=== PATIENT | female | born 1995 | race Caucasian/White ===

== ENCOUNTER 2018-09-26 09:44 | Day surgery (SDC) | payer OTHER ==
[~2018-09-26] VITALS: Ht 157.5 cm; Wt 82.1 kg
[~2018-09-26 09:44] MED LIST: ACETAMINOPHEN 650 MG SUPP PR ONE; LR 1,000 ML IV ONE
[2018-09-26 10:21] LABS: HEMATOCRIT 40.8 % (36.0-47.0); HEMOGLOBIN 13.5 g/dl (12.0-15.5); MEAN CORPUSCULAR HEMOGLOBIN 28.8 pg (27.0-33.0); MEAN CORPUSCULAR HGB CONC 33.1 g/dl (32.0-36.5); PLATELET COUNT, AUTOMATED 298 10^3/uL (150-450); RED BLOOD COUNT 4.69 10^6/uL (4.00-5.40); WHITE BLOOD COUNT 6.5 10^3/uL (4.0-10.0)
[2018-09-26 10:41] LABS: BLOOD UREA NITROGEN 13 MG/DL (7-18); CARBON DIOXIDE LEVEL 28 MEQ/L (21-32); CHLORIDE LEVEL 107 MEQ/L (98-107); CREATININE FOR GFR 0.73 MG/DL (0.55-1.30); GLOMERULAR FILTRATION RATE > 60.0 (>60); GLUCOSE, FASTING 92 MG/DL (70-100); HCG, SERUM QUANTITATIVE < 1.0 MIU/ML; POTASSIUM SERUM 5.2 MEQ/L (3.5-5.1); SODIUM LEVEL 140 MEQ/L (136-145)
[2018-09-26] MEDS ORDERED: LIDOCAINE 2% INJ 100 MG/5 ML SDV (FOR ANES.) As Ordered ONE (10:50)
[2018-09-26] MEDS ORDERED: PROPOFOL 200 MG/20 ML VIAL As Ordered ONE (10:50)
[2018-09-26] MEDS ORDERED: ROCURONIUM BROMIDE 50 MG/5 ML VIAL As Ordered ONE (10:50)
[2018-09-26] MEDS ORDERED: dexameTHASONE 4 MG/ML 1ML VIAL (J1100) As Ordered ONE (10:52)
[2018-09-26] MEDS ORDERED: HYDROmorphone HCL 2 MG/ML 1ML VIAL (J1170) As Ordered ONE (10:52)
[2018-09-26] MEDS ORDERED: MIDAZOLAM INJ 2 MG/2 ML VIAL (J2250) As Ordered ONE (10:52)
[2018-09-26] MEDS ORDERED: fentaNYL 100 MCG/2 ML INJECTION (J3010) As Ordered ONE (10:52)
[2018-09-26] MEDS ORDERED: METOCLOPRAMIDE INJ 10MG/2ML VIAL (J2765) As Ordered ONE (10:53)
[2018-09-26] MEDS ORDERED: KETOROLAC 60 MG/2 ML VIAL (J1885) As Ordered ONE (11:45)
[2018-09-26] MEDS ORDERED: METHYLENE BLUE 0.5% (5MG/ML) 10 ML AMP (PROVAYBLUE)(Q9968 PER 1MG) As Ordered ONE (12:31)
[2018-09-26] MEDS ORDERED: ACETAMINOPHEN 650 MG SUPP As Ordered ONE (12:32)
[2018-09-26] MEDS: BUPIVACAINE HCL 0.25% 10 ML VIAL As Ordered ONE ×2 (13:45→13:47)
[2018-09-26] MEDS ORDERED: fentaNYL 100 MCG/2 ML INJECTION (J3010) IV PRN (14:15)
[2018-09-26] MEDS ORDERED: LR 1,000 ML IV SCH (14:15)
[2018-09-26] MEDS ORDERED: HYDROMORPHONE HCL 0.5 MG/ 0.5 ML SYRINGE (J1170 PER 1) IV PRN (14:15)
[2018-09-26] MEDS: PERCOCET 5MG/325MG TAB PO PRN ×2 (14:20→15:01)
[2018-09-26 15:19] VITALS: BP 115/75
[2018-09-26] MEDS ORDERED: KETOROLAC 30 MG/ML VIAL (J1885) IV PRN (20:00)
--- NOTE | 2018-10-04 17:47 | RO ---
DATE OF PROCEDURE: 09/26/2018 PREOPERATIVE DIAGNOSIS: Satisfied parity POSTOPERATIVE DIAGNOSIS: Satisfied parity and adhesions. OPERATION PROPOSED: Laparoscopic operative bilateral salpingectomy, hysteroscopy, dilation and curettage, removal of intrauterine contraceptive device (IUCD). OPERATION PERFORMED: Operative laparoscopy, bilateral salpingectomy, release of adhesions, and removal of intrauterine contraceptive device. No hysteroscopy was performed. SURGEON: Dr. Christopher Mcdermott BILLING AUDITOR: Dr. Anna Mas ANESTHESIA: DESCRIPTION OF PROCEDURE: Under adequate anesthesia, prepped and draped in the lithotomy position, Burris catheter in the bladder draining clear urine. Acetaminophen suppository 1300 mg per rectum. Sequentials on board. Weighted speculum in vagina, single-tooth tenaculum on anterior lip of the cervix. A uterine elevator was placed in endocervical canal. Reprepping and draping, small subumbilical incision was made. Veress needle was applied, 3.4 liters of CO2 at a flow rate of 14 to a pressure of 15. Under direct vision, a 5 mm scope was placed in the abdomen. No evidence of perforation, hemorrhage or bleeding. Evaluation: Presently the patient is menstruating. There is a lot of blood in the cul-de-sac. Right upper quadrant was normal. Left upper quadrant was normal. Cul-de-sac is full of menstrual blood. Anterior aspect of the bladder was full of menstrual blood. Both ovaries appeared to be normal. Tubes were visualized to the fimbriated end. She had some adhesions of the right adnexa to the sidewall of the pelvis. With a 5 mm port on either side, we took down the adhesive bands allowing the ovary to float free. No evidence of endometriosis was seen. We then went ahead and using the LigaSure, we removed the right tube right to the cornua, and we removed the left tube right to the cornua. No evidence of active bleeding. Both tubes were removed out of the ports on the inferior ports and sent off to pathology under cover. Once that was done, we demonstrated no evidence of active bleeding. We irrigated out the old blood. We then deflated to 4 mm pressure. We then removed the two side ports, the mainstem port, put a deep stitch in the umbilical area, superficial stitches, Marcaine 0.25% to the skin and skin tapes. Going below, our attention placed, with the weighted speculum in the vagina, we removed the uterine elevator. We were able to visualize the string; therefore, we just pulled the IUCD out, which was sent to pathology under separate cover. With that done, all the instruments removed, the Burris catheter was removed, the uterus was placed in anatomical position, and the patient was sent to recovery in good condition.
== END 2018-09-26 15:47 | disposition home or self-care (01) ==
LOC: M SDC 09:44
PROVIDERS: ATTEND Obstetrics & Gynecology
DX: Z30.2 Encounter for sterilization (principal); N73.9 Female pelvic inflammatory disease, unspecified
CPT/HCPCS: 36415; 58301; 58661; 80048; 84702; 85027; 88300; 88302; J1100; J1170; J1885; J2250; J2765; J3010

== ENCOUNTER → 2019-03-27 | Outpatient (RCR) | payer OTHER | END | disposition home or self-care (01) | LOC: M PT 09:06 | PROVIDERS: ATTEND Otolaryngology | DX: M26.609 Unspecified temporomandibular joint disorder, unspecified side (principal) ==

== ENCOUNTER 2019-04-26 09:02 | Outpatient (RCR) | payer OTHER | END 2019-04-27 | LOC: M PT 09:02 | PROVIDERS: ATTEND Otolaryngology | DX: M26.609 Unspecified temporomandibular joint disorder, unspecified side (principal) ==

== ENCOUNTER → 2019-05-13 | Outpatient (REF) | payer OTHER ==
[2019-05-13 13:44] LABS: BASO % 0.3 % (0.0-1.0); EOS # 0.1 10^3/uL (0.0-0.5); EOS % 1.9 % (0.0-3.0); HEMATOCRIT 43.1 % (36.0-47.0); HEMOGLOBIN 14.1 g/dl (12.0-15.5); LYMPH # 1.7 10^3/uL (1.5-5.0); LYMPH % 24.3 % (24.0-44.0); MEAN CORPUSCULAR HEMOGLOBIN 29.3 pg (27.0-33.0); MEAN CORPUSCULAR HGB CONC 32.7 g/dl (32.0-36.5); MEAN CORPUSCULAR VOLUME 89.4 fl (80.0-96.0); MONO # 0.9 10^3/uL (0.0-0.8); MONO % 12.4 % (0.0-5.0); NEUTROPHILS # 4.2 10^3/uL (1.5-8.5); NEUTROPHILS % 60.8 % (36.0-66.0); PLATELET COUNT, AUTOMATED 290 10^3/uL (150-450); RED BLOOD COUNT 4.82 10^6/uL (4.00-5.40); WHITE BLOOD COUNT 6.9 10^3/uL (4.0-10.0)
[2019-05-13 14:11] LABS: ALBUMIN 4.2 GM/DL (3.2-5.2); ALT/SGPT 16 U/L (12-78); BILIRUBIN,TOTAL 1.2 MG/DL (0.2-1.0); BLOOD UREA NITROGEN 12 MG/DL (7-18); CALCIUM LEVEL 9.2 MG/DL (8.5-10.1); CARBON DIOXIDE LEVEL 22 MEQ/L (21-32); CHLORIDE LEVEL 107 MEQ/L (98-107); CREATININE FOR GFR 0.64 MG/DL (0.55-1.30); GLOMERULAR FILTRATION RATE > 60.0 (>60); GLUCOSE, FASTING 82 MG/DL (70-100); POTASSIUM SERUM 4.2 MEQ/L (3.5-5.1); RHEUMATOID FACTOR QUANT < 10.0 IU/ML (<15.0); SODIUM LEVEL 139 MEQ/L (136-145); TOTAL 25(OH) VITAMIN D 20.1 NG/ML (30.0-100.0); TOTAL PROTEIN 7.6 GM/DL (6.4-8.2)
[2019-05-13 14:18] LABS: ERYTHROCYTE SEDIMENTATION RATE 9 mm/hr (0-20)
[2019-05-15 00:07] LABS: ANTINUCLEAR ANTIBODIES DIRECT Negative (Negative)
== END ==
LOC: M LABNEURO 10:40
PROVIDERS: ATTEND Psychiatry & Neurology Neurology
DX: R51 Headache (principal)

== ENCOUNTER → 2020-02-07 | Outpatient (CLI) | payer OTHER ==
--- NOTE | 2020-02-07 16:48 | REP ---
RIGHT BREAST ULTRASOUND: Real-time sonographic evaluation of right breast performed. Because of the patient's age and lack of family history, no mammogram is performed. Reportedly, there is a palpable lump, palpated by the patient, in the region of 8 o'clock, right breast. Ultrasound of that area demonstrates dense fibroglandular tissue. There is no sonographic evidence of cystic or solid mass. IMPRESSION: ACR 2 benign. Dense fibroglandular tissue at the site of the reported palpable lump. No cystic or solid nodule. Clinical correlation and followup recommended.
== END ==
LOC: M WHC 14:02
PROVIDERS: ATTEND Family Medicine
DX: N63.0 Unspecified lump in unspecified breast (principal)